=== PATIENT | male | born 1970 | race Caucasian/White ===

== ENCOUNTER 2017-05-23 18:31 | Emergency (ER) | payer OTHER ==
[~2017-05-23] VITALS: Ht 193 cm; Wt 88.5 kg
[~2017-05-23 18:31] MED LIST: ASA81BEC PO; BACTRIM DS TAB1 EACH PO; HYDROCODON-ACE1 EAC5 PO; NOHOMEMEDICATIONS; NORCO 5-325 TA1 EACH PO; OPANA ER20 M1 PO; OXYCODONE HCL10 MG PO; PAXIL10 MG PO; PERCOCET 5-3251 EACH PO; TOPAMAX 25 MG T25 M1 PO
[2017-05-23] MEDS ORDERED: NICODERM CQ1 EAC1 TRANSDERM (19:28)
[2017-05-23] MEDS ORDERED: NICOTINE TRANSD21 M1 TRANSDERM (19:28)
[2017-05-23] MEDS ORDERED: PREDNISONE 20 M20 M1 PO (19:28)
[2017-05-23] MEDS ORDERED: NICOTINE TRANSD14 M1 TRANSDERM (19:28)
[2017-05-23] MEDS ORDERED: CIPROFLOXIN HC2.5 M1 OPHTHALMIC (19:28)
[2017-05-23 19:46] VITALS: BP 131/92
== END 2017-05-23 19:46 | disposition home or self-care (01) ==
LOC: M.ERS 18:31
DX: T26.32XA Burns of other specified parts of left eye and adnexa, initial encounter (principal); T26.31XA Burns of other specified parts of right eye and adnexa, initial encounter; I10 Essential (primary) hypertension; J45.909 Unspecified asthma, uncomplicated; F17.210 Nicotine dependence, cigarettes, uncomplicated; Z88.1 Allergy status to other antibiotic agents; X19.XXXA Contact with other heat and hot substances, initial encounter; Y93.89 Activity, other specified; Y92.89 Other specified places as the place of occurrence of the external cause; Y99.8 Other external cause status